=== PATIENT | male | born 1950 | race Caucasian/White ===

== ENCOUNTER 2024-11-24 16:02 | Emergency (ER) | payer MEDICARE, OTHER, SELFPAY ==
[2024-11-24 16:03] VITALS: BP 123/77; PULSE 93; RESP 16; TEMP 37.1; O2SAT 94; BMI 34.3
--- NOTE | 2024-11-24 16:14 | EX.ED.UPPERE ---
HPI <CONRADO Montiel - Last Filed: 11/24/24 18:01> History of Present Illness Chief Complaint: Upper Extremity Injury Narrative Narrative: 74-year-old [id number] male presents with a right shoulder injury that occurred a week and a half ago. He tripped and injured his right shoulder. He is not sure if he hit it directly or had his hand out. Dates he also bumped his head and had a small abrasion but no LOC. No blood thinners. He had decreased range of motion of the shoulder which improved after a few days and he was able to reach his hand up to his head, but over the last 2 days he has developed decreased range of motion and bruising in the bicep and elbow area. He has no pain in the elbow or distal extremity. No weakness or paresthesias. He is on aspirin, no blood thinners. PFSH <CONRADO Montiel - Last Filed: 11/24/24 18:01> PFSH Allergy/AdvReac Type Severity Reaction Status Date / Time No Known Allergies Allergy Verified 11/24/24 16:03 Social History Smoking Status: Never smoker ROS <CONRADO Montiel - Last Filed: 11/24/24 18:01> ROS ED ROS Narrative Neuro: Negative for motor/sensory dysfunction. Skin: Negative forwound. Musc: Positive for left shoulder pain, trauma. Heme: Negative for easy bruising, bleeding. EXAM <CONRADO Montiel - Last Filed: 11/24/24 18:01> Physical Exam Narrative Exam Narrative: CONST: Patient sitting in no acute distress. EYES: Normal inspection. HEAD: Head normocephalic atraumatic. NECK: Normal inspection. RESP: No respiratory distress, CTAB. CVS: Regular rate and rhythm, no murmur, no gallop. SKIN: Color normal, no rash, warm, dry, intact. EXTREMITIES: Bilateral upper extremities appear normal and symmetric. Bruising along left medial bicep extending towards the elbow. No tenderness to palpation of the shoulder humerus elbow forearm wrist or hand, but he has limited active shoulder range of motion and pain with passive range of motion. When I raise his right shoulder above his head he can pull it better. 5/5 strength in shoulder abduction, elbow and wrist flexion/extension, and optometrist president/practice owner strength. 2+ radial pulses. NEURO: Alert and answering questions appropriately. PSYCH: Normal affect. Const Vital Signs: 11/24/24 16:03 Temperature 98.7 F Temperature Source Oral Pulse Rate 93 Respiratory Rate 16 Blood Pressure 123/77 H Blood Pressure Mean 92 Pulse Ox 94 Oxygen Delivery Method Room Air [facility] <CONRADO Montiel - Last Filed: 11/24/24 18:01> [facility] Narrative Medical decision making narrative: History gathered from patient and family member Differential includes but not limited to shoulder contusion, fracture, rotator cuff injury 74-year-old male fell 1.5 weeks ago and has right shoulder pain. Few days ago he developed bruising of the upper arm. He is on aspirin, no thinners. He has pain with shoulder range of motion but no deformity. There is significant bruising extending on the inner humeral area towards the elbow but he has no elbow or distal tenderness. Neurovascular intact. X-rays of the shoulder elbow there negative. It noted a right-sided rib fracture but he has no chest wall tenderness or signs of trauma and he reports having an old rib fracture. I recommended ice and Tylenol and follow-up with orthopedics if it does not improve. He was discharged in stable condition. I have personally performed a face to face assessment of the patient and have reviewed the MOHIT Note. I performed a substantive portion of the visit including all aspects of the following. My fox findings include: History is 74-year-old male fell about a week ago complain discomfort in his right shoulder. Pain with range of motion. [id number]. No prior history or surgery. No other complaints. He is on aspirin but no other blood thinners. Exam is [well-appearing 74-year-old male. Vital signs stable afebrile. Accompanied by family. H EENT exam pupils round reactive light. No trauma to his face or scalp. Nontender no hematoma. C-spine and neck nontender. Back nontender. Lungs clear to auscultation. Heart regular rhythm rate about 90 no murmur. Chest wall and ribs nontender. No ecchymosis or bruising. No subcu air or crepitus. Abdomen soft nontender. No peritoneal signs. No bruising. Moving all 4 extremities. Neurovascularly intact. No shortening or rotation of the hips. Normal dorsi plantarflexion. Left upper extremity is nontender nonswollen. Normal range of motion. Normal optometrist president/practice owner strength. Left shoulder mild tenderness. No deformity or bruising. He is able to do flexion extension. He has limited ability to lift his right arm over his shoulder but if I lift it up he can keep it above his head I do not think his rotator cuff is torn. Humerus distally is nontender. He is swelling and bruising on the elbow and proximal forearm. But no gross bony deformity. He has full flexion extension supination and pronation of the elbow. Wrist is nontender right hand is nontender. 5 out of 5 optometrist president/practice owner strength. Normal radial pulse. Normal sensation. Neurologically is awake alert. Answering questions following commands. GCS 15.] Medical Decision Making [older male fall bruising to the right elbow region but pain is actually in the shoulder. X-ray of the right shoulder and right elbow be obtained.] Other additions or changes: [None] <Dr. Josemanuel Oliveira MD - Last Filed: 11/24/24 17:12> [facility] Narrative Medical decision making narrative: I have personally performed a face to face assessment of the patient and have reviewed the MOHIT Note. I performed a substantive portion of the visit including all aspects of the following. My fox findings include: History is 74-year-old male fell about a week ago complain discomfort in his right shoulder. Pain with range of motion. [id number]. No prior history or surgery. No other complaints. He is on aspirin but no other blood thinners. Exam is [well-appearing 74-year-old male. Vital signs stable afebrile. Accompanied by family. H EENT exam pupils round reactive light. No trauma to his face or scalp. Nontender no hematoma. C-spine and neck nontender. Back nontender. Lungs clear to auscultation. Heart regular rhythm rate about 90 no murmur. Chest wall and ribs nontender. No ecchymosis or bruising. No subcu air or crepitus. Abdomen soft nontender. No peritoneal signs. No bruising. Moving all 4 extremities. Neurovascularly intact. No shortening or rotation of the hips. Normal dorsi plantarflexion. Left upper extremity is nontender nonswollen. Normal range of motion. Normal optometrist president/practice owner strength. Left shoulder mild tenderness. No deformity or bruising. He is able to do flexion extension. He has limited ability to lift his right arm over his shoulder but if I lift it up he can keep it above his head I do not think his rotator cuff is torn. Humerus distally is nontender. He is swelling and bruising on the elbow and proximal forearm. But no gross bony deformity. He has full flexion extension supination and pronation of the elbow. Wrist is nontender right hand is nontender. 5 out of 5 optometrist president/practice owner strength. Normal radial pulse. Normal sensation. Neurologically is awake alert. Answering questions following commands. GCS 15.] Medical Decision Making [older male fall bruising to the right elbow region but pain is actually in the shoulder. X-ray of the right shoulder and right elbow be obtained.] Other additions or changes: [None] History & Record Review Discussion w/independent historian: Patient and Family Additional record(s) reviewed:: Prior inpatient record, Prior outpatient record, Prior ED visit and Prior labs Radiography Diagnostic Testing: Right shoulder x-ray, 4 views, interpreted by myself and the radiologist. No acute fracture or dislocation. Old rib fracture. He is not tender at that site on exam he has no chest wall pain. Right elbow x-ray, 3 views, interpreted by myself 3 views showed no acute abnormality. No fracture. No dislocation. Soft tissue swelling. Discharge Plan Triage Chief Complaint: Upper Extremity Injury ED Midlevel Provider: Venus Rosales ED Provider: Josemanuel Oliveira Dx/Rx/DC Orders Clinical Impression: Acute pain of right shoulder, Traumatic ecchymosis of right upper arm Instructions: ED Contusion, Upper Extremity Primary Care Provider: [facility],[place] Referrals: Hakeem Chaves MD [Med Staff - Active Staff] - [facility],[place] [Primary Care Provider] - Activity Restrictions/Additional Instructions: Ice to your shoulder and your forearm. Elevate to decrease pain and swelling. This should progressively get better. If it is not and you do not get full range of motion back in your shoulder you need to follow-up with orthopedics for further evaluation. Hold your aspirin the next 2 days to decrease the bruising. Print Language: Italian Disposition Disposition: Home, Self Care Discharge Date/Time: 11/24/24 17:16
--- NOTE | 2024-11-24 16:15 | RAD_ITS ---
PROCEDURE: SHOULDER MIN 2 VIEWS 11/24/2024 REASON FOR EXAM: PAIN TECHNIQUE: 4 view(s) of the right shoulder COMPARISON: None FINDINGS: Bones: No acute fracture. Suspected right rib fracture. Degenerative changes of the glenoid. Joints: Normal alignment of the acromioclavicular and glenohumeral joints. Soft tissues: None Other: RAD/Shoulder min 2 Views IMPRESSION: No acute fracture or dislocation of the right shoulder joint. Suspected right-sided rib fractures. Rib series would be helpful for further c haracterization. Reading Location: [facility]
--- NOTE | 2024-11-24 17:00 | RAD_ITS ---
EXAM: Right elbow CLINICAL HISTORY: Fall, bruising, swelling, pain COMPARISON: None TECHNIQUE: Three views FINDINGS: No acute fracture or dislocation. Normal soft tissues. RAD/Elbow min 3 Views IMPRESSION: Normal elbow Reading Location: [id number]
== END 2024-11-24 17:16 | disposition home or self-care (01) ==
PROVIDERS: Emergency Provider Emergency Medicine; Visit Provider Emergency Medicine
DX: M25.511 Pain in right shoulder (principal); S40.021A Contusion of right upper arm, initial encounter; Z79.82 Long term (current) use of aspirin; W18.40XA Slipping, tripping and stumbling without falling, unspecified, initial encounter
CPT/HCPCS: 73030; 73080; 99282